=== PATIENT | male | born 1965 | race Caucasian/White ===

== ENCOUNTER 2017-03-24 02:07 | Emergency (ER) | payer SELFPAY ==
[2017-03-24] MEDS ORDERED: Adacel (T-DAP) 0.5 ML VIAL ONE (02:22)
[2017-03-24] MEDS ORDERED: HYDROcodone/Acetaminophen 5/325 mg Tablet ONE (02:49)
[2017-03-24] MEDS ORDERED: Ketorolac Tromethamine 60 MG/2 ML VIAL ONE (04:12)
--- NOTE | 2017-03-24 08:45 | RAD ---
RIGHT HAND 3 VIEWS: HISTORY: Right middle finger pain. 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 A s oft tissue defect is also seen. No radiopaque foreign bodies are identified. POS: [facility]
== END 2017-03-24 04:28 | disposition home or self-care (01) ==
LOC: ERS 02:07
DX: S68.122A Partial traumatic metacarpophalangeal amputation of right middle finger, initial encounter (principal); Z23 Encounter for immunization; W31.1XXA Contact with metalworking machines, initial encounter; Y92.69 Other specified industrial and construction area as the place of occurrence of the external cause; Y99.9 Unspecified external cause status
CPT/HCPCS: 26755; 90471; 90715; 96372; J1885

== ENCOUNTER 2017-03-30 10:25 | Outpatient (CLI) | payer OTHER, SELFPAY ==
[2017-03-30 11:12] LABS: Mean Corpuscular HGB CONC 32.4 g/dL (32.0-36.0); Mean Corpuscular Hemoglobin 29.8 pg (27.0-31.0); Mean Corpuscular Volume 92.1 fl (80.0-94.0); Mean Platelet Volume 7.1 fL (7.4-10.4); Platelet Count 213 thou/uL (130-400); RBC Distribution Width 12.6 % (11.5-14.5); Red Blood Cell (RBC) Count 5.04 mill/uL (4.70-6.10); White Blood Cell (WBC) Count 5.3 thou/uL (4.8-10.8)
== END 2017-03-30 10:26 | disposition home or self-care (01) ==
LOC: LABBT 10:25
PROVIDERS: ATTEND Orthopaedic Surgery Hand Surgery
DX: Z01.812 Encounter for preprocedural laboratory examination (principal); S61.202A Unspecified open wound of right middle finger without damage to nail, initial encounter
CPT/HCPCS: 85027; 85652

== ENCOUNTER 2017-03-31 11:54 | Day surgery (SDC) | payer OTHER ==
[2017-03-30 10:39] VITALS: BMI 27.9
[2017-03-31] MEDS ORDERED: Ketorolac Tromethamine 30 MG/ML VIAL ONE ×2 (16:44→20:42)
[2017-03-31] MEDS ORDERED: Lidocaine 1% PF 5 ML VIAL ONE (16:44)
[2017-03-31] MEDS ORDERED: PROPOFOL 200 MG/20 ML VIAL ONE (16:44)
[2017-03-31] MEDS ORDERED: Ondansetron PF 4 MG/2 ML Vial ONE (16:44)
[2017-03-31] MEDS ORDERED: Dexamethasone 20 MG/5 ML VIAL ONE (16:44)
[2017-03-31] MEDS ORDERED: Bupivacaine 0.5% 10 ML VIAL ONE (19:20)
[2017-03-31] MEDS ORDERED: Sodium Chloride 0.9% 10 ML ONE (19:20)
[2017-03-31] MEDS ORDERED: Bacitracin Zinc Ointment 30 gm TUBE ONE (19:20)
[2017-03-31] MEDS ORDERED: Fentanyl 100 MCG/2 ML VIAL ONE ×2 (19:28→20:42)
--- NOTE | 2017-04-01 07:25 | OP ---
DATE OF SERVICE: 03/31/2017 PREOPERATIVE DIAGNOSIS: Right middle finger 3 x 1 cm full-thickness skin loss with exposed bone afte r previous injury at work. POSTOPERATIVE DIAGNOSIS: Right middle finger 3 x 1 centimeter full-thickness skin loss with exposed bone after previous injury at work. FINDINGS: Exposed bone 2 mm, required approximately 2.5 mm with shortening to allow soft tissue cove rage to include the nail bed. PROCEDURE PERFORMED: 1. Debridement of wound. 2. Bone shortening, distal phalanx. 3. Full-thickness skin graft 3 x 1 cm harvested from ipsilateral forearm, all at the right middle fin benigno. ESTIMATED BLOOD LOSS: 50 mL TOURNIQUET TIME: None. SPECIMEN: None. FINDINGS: Gross infection and no dermis at all left on the lacerated distal tip flap. COMPLICATIONS: None. ANESTHESIA: A combination of LMA technique and followed by 10 mL metacarpophalangeal joint and 5 mL at the level of the antecubital fossa harvest site, Marcaine block of 0.5% without epinephrine, and t hen at the end of the procedure, axillary block. DESCRIPTION OF PROCEDURE: After successful anesthesia listed above by [facility]. The limb was prepped and draped. A timeout was then performed. We then removed the eschar on the 3 x nearly 1 cm wide full-thickness skin loss, and there was only fat, no dermis. We then noticed that there w as 1.5 to 2 mm of bone protruding so we resected back to 3 mm to give us a rim for which to close. W e then irrigated and debrided the wound further, then this included excisional technique using huber my scissors, , and a [place] blade and there was no gross infection and the marginal edges were c lean. We then used a heavy 4-0 Monocryl to bring fat up to the nail bed in a buried suture x3. I then harv ested skin graft full thickness from tne antecubital fossa after giving the injection of Marcaine to block this area. Then, we thinned the graft, bolstered it with 4-0 nylon at all four corners, suture d it to the nail bed and the distal epidermal dermal fold with a running 5-0 chromic suture, then tre lied bacitracin, Adaptic, and also cotton ball bolster. We then closed primarily after attaining hemostasis at the donor site with a running 4-0 Monocryl and epidermal stitch with 4-0 nylon interrupted simple pattern. Bulky dressing was applied and the swapnil ent left the operating after given axillary block without evidence of anesthetic or operative complic ations.
== END 2017-03-31 22:25 | disposition home or self-care (01) ==
LOC: SDC 11:54
PROVIDERS: ATTEND Orthopaedic Surgery Hand Surgery
PROC: 0HBDXZZ Excision of Right Lower Arm Skin, External Approach (ICD-10-PCS; principal; 2017-03-31)
PROC: 0HRFX73 Replacement of Right Hand Skin with Autologous Tissue Substitute, Full Thickness, External Approach (ICD-10-PCS; principal; 2017-03-31)
DX: S61.302A Unspecified open wound of right middle finger with damage to nail, initial encounter (principal); Z98.890 Other specified postprocedural states; Z79.2 Long term (current) use of antibiotics; Z79.899 Other long term (current) drug therapy; Y99.0 Civilian activity done for income or pay
CPT/HCPCS: 96372; J1100; J1885; J2001; J2405; J2704; J3010; J3370; J3490